=== PATIENT | female | born 1955 | race Caucasian/White ===

== ENCOUNTER 2016-05-20 23:30 | Emergency (ER) | payer BC ==
[2016-05-21] MEDS ORDERED: methylPREDNISolone SOD SUCC* 125 MG 2 ML VIAL IV ONE (01:31)
[2016-05-21] MEDS ORDERED: diPHENhydraMINE IV* 50 MG/ML 1 ml VIAL (BENADRYL) IV ONE (01:31)
--- NOTE | 2016-05-21 02:03 | ED ---
Wenceslao Valderrama Salem, scribed for Jason Zavala MD on 05/21/16 at 0137 . Allergic Reaction/Systemic - HPI Summary HPI Summary: Patient is 60 y/o female who presents with hives and lumps across her forehead and neck since less than 12 hours ago. She states she was on a flight back from [place] when sx began. She reports she has environmental allergies, food allergies, and allergies to Penicillins, but that she is very careful. She took 25mg Benadryl at 1930 and 2200. She denies SOB, but reports a postnasal drip feeling in her throat. - History of Current Complaint Chief Complaint: EDAllergicReaction Time Seen by Provider: 05/21/16 01:23 Hx Obtained From: Patient Onset/Duration: Gradual Onset, Started hours ago Timing: Constant Severity Initially: Moderate Severity Currently: Moderate Pain Intensity: 0 Pain Scale Used: 0-10 Numeric Location: Discrete @ - Forehead and neck. Character: Hives Aggravating Factor(s): Nothing Alleviating Factor(s): Nothing Associated Signs And Symptoms: Positive: Negative - Allergies/Home Medications Allergies/Adverse Reactions: Allergies Allergy/AdvReac Type Severity Reaction Status Date / Time Penicillins Allergy Hives Verified 05/21/16 00:06 Shrimp Flavor Allergy Hives Verified 05/21/16 00:06 Sulfa Antibiotics Allergy Fever Verified 05/21/16 00:06 environmental Allergy Eyes Uncoded 05/21/16 00:06 Itchy/Swollen/Red/Watery PMH/Surg Hx/FS Hx/Imm Hx Previously Healthy: Yes Cardiovascular History: Denies: Hx Hypertension - Cancer History Hx Chemotherapy: No Hx Radiation Therapy: No Infectious Disease History: No Infectious Disease History: Reports: Traveled Outside the [place] in Last 30 Days - [place] - Family History Known Family History: Positive: Hypertension - Social History Occupation: Unemployed Lives: With Family - . Review of Systems Positive: Other - Hives and lumps on her forehead and neck. . Negative: Fever Positive: Other - A postnasal drip feeling in her throat. Negative: Shortness Of Breath All Other Systems Reviewed And Are Negative: Yes Physical Exam Triage Information Reviewed: Yes Vital Signs On Initial Exam: Initial Vitals Temp Pulse Resp BP Pulse Ox 98.8 F 69 18 136/65 98 05/21/16 00:03 05/21/16 00:03 05/21/16 00:03 05/21/16 00:03 05/21/16 00:03 Vital Signs Reviewed: Yes Appearance: Positive: Well-Appearing, No Pain Distress Skin: Positive: Warm, Other - patchy erythematous rash on face Head/Face: Positive: Other - mild perioral edema Eyes: Positive: SASHA ENT: Positive: Hearing grossly normal Neck: Positive: Supple Respiratory/Lung Sounds: Positive: Clear to Auscultation, Breath Sounds Present Cardiovascular: Positive: RRR Abdomen Description: Positive: Nontender, Soft Bowel Sounds: Positive: Present Musculoskeletal: Positive: Strength/ROM Intact Neurological: Positive: Sensory/Motor Intact, Alert, Oriented to Person Place, Time Psychiatric: Positive: Affect/Mood Appropriate Diagnostics - Vital Signs Vital Signs Temp Pulse Resp BP Pulse Ox 05/21/16 00:03 98.8 F 69 18 136/65 98 - Laboratory Lab Statement: Any lab studies that have been ordered have been reviewed, and results considered in the medical decision making process. Re-Evaluation - Re-Evaluation First Eval Change: Improved Allergic Reaction Course/Dx - Course Course Of Treatment: 60 y/o female presents with hives and lumps on her forehead and neck since less than 12 hours ago. She denies SOB. She received Diphenhydramine and Methylprednisolone in the ED. Pt is improved and will be DC' d. - Diagnoses Provider Diagnoses: Acute allergic reaction Discharge - Discharge Plan Condition: Improved Disposition: HOME Prescriptions: predniSONE TAB* [Deltasone TAB*] 40 mg PO DAILY #8 tab Patient Education Materials: General Allergic Reaction (ED) Referrals: Evelyne Badillo MD [Primary Care Provider] - Additional Instructions: Follow up with PCP. The documentation as recorded by the Wenceslao hu Salem accurately reflects the service I personally performed and the decisions made by , Jason Zavala MD.
[2016-05-21 02:17] VITALS: BP 138/64
== END 2016-05-21 02:54 | disposition home or self-care (01) ==
LOC: ED 23:30
DX: T78.40XA Allergy, unspecified, initial encounter (principal); L50.9 Urticaria, unspecified; X58.XXXA Exposure to other specified factors, initial encounter
CPT/HCPCS: 96374; 96375; 99282; J1200; J2930

== ENCOUNTER 2017-01-20 21:49 | Emergency (ER) | payer BC ==
[2017-01-20] MEDS ORDERED: Metoprolol Tartrate IV* 1 MG/ML 5 ML VIAL IV ONE (22:31)
[2017-01-20 22:46] LABS: Hematocrit 35 % (35-47); Hemoglobin 11.8 g/dl (12.0-16.0); Mean Corpuscular HGB Conc 34 g/dl (31-36); Mean Corpuscular Hemoglobin 29 pg (27-31); Mean Corpuscular Volume 86 fL (80-97); Mean Platelet Volume 8 um3 (7.4-10.4); Red Blood Count 4.06 10^6/ul (4.0-5.4); Red Cell Distribution Width 12 % (10.5-15); White Blood Count 8.1 10^3/ul (3.5-10.8)
[2017-01-20 23:00] LABS: Anion Gap 6 mmol/L (2-11); BUN/Creatinine Ratio 26.2 (8-20); Blood Urea Nitrogen 22 mg/dL (6-24); CO2 Carbon Dioxide 28 mmol/L (22-32); Chloride 104 mmol/L (101-111); EGFR African American 88.6 (>60); EGFR Non-African American 68.9 (>60); Glucose 158 mg/dL (70-100); Potassium 3.7 mmol/L (3.5-5.0); Sodium 138 mmol/L (133-145)
[2017-01-20 23:01] LABS: ALT 27 U/L (7-52); AST 17 U/L (13-39); Albumin 3.6 g/dL (3.2-5.2); Alkaline Phosphatase 106 U/L (34-104); Calcium 9.2 mg/dL (8.6-10.3); Globulin 2.6 g/dL (2-4); Total Protein 6.2 g/dL (6.4-8.9)
[2017-01-20 23:26] LABS: T4 14.35 mcg/mL (6.09-12.23)
[2017-01-20 23:32] LABS: Free T4 3.32 ng/dL (0.61-1.12)
[2017-01-20 23:41] LABS: TSH (Thyroid Stimulating Horm) < 0.01 mcIU/mL (0.34-5.60)
--- NOTE | 2017-01-21 00:18 | ED ---
Sean Valderrama Benjamin, scribed for Jesus Hull MD on 01/20/17 at 2218 . Palpitations / Dysrhythmia - HPI Summary HPI Summary: 61yo female who was recently dxed with Graves Dz (hyperthyroidism) presents today c/o palpitations tonight after taking propranolol at 1815 hour. Pt recently changed her propranolol dose from 180mg extended release daily to 100mg BID. - History of Current Complaint Chief Complaint: EDDysrhythmPalp Time Seen by Provider: 01/20/17 22:00 Hx Obtained From: Patient, Family/Dental Assistant Teacher - Onset/Duration: Sudden Onset, Lasting Hours, Still Present Severity Initially: Mild Severity Currently: Mild Character: Fast Aggravating: Medication - propranolol Alleviating: Nothing Associated Signs & Symptoms: Negative - Allergy/Home Medications Allergies/Adverse Reactions: Allergies Allergy/AdvReac Type Severity Reaction Status Date / Time Penicillins Allergy Hives Verified 05/21/16 00:06 Shrimp Flavor Allergy Hives Verified 05/21/16 00:06 Sulfa Antibiotics Allergy Fever Verified 05/21/16 00:06 environmental Allergy Eyes Uncoded 05/21/16 00:06 Itchy/Swollen/Red/Watery PMH/Surg Hx/FS Hx/Imm Hx Endocrine/Hematology History: Reports: Hx Thyroid Disease - hyper. Graves Cardiovascular History: Denies: Hx Hypertension - Cancer History Hx Chemotherapy: No Hx Radiation Therapy: No Infectious Disease History: No Infectious Disease History: Denies: Traveled Outside the [place] in Last 30 Days - Family History Known Family History: Positive: Hypertension - Social History Lives: With Family Alcohol Use: Weekly Substance Use Type: Reports: None Smoking Status (MU): Former Smoker Review of Systems Constitutional: Negative Eyes: Negative ENT: Negative Positive: Palpitations. Negative: Chest Pain Respiratory: Negative Negative: Shortness Of Breath Gastrointestinal: Negative Genitourinary: Negative Musculoskeletal: Negative Skin: Negative Neurological: Negative Positive: Anxious All Other Systems Reviewed And Are Negative: Yes Physical Exam - Summary Physical Exam Summary: VITAL SIGNS: Reviewed. GENERAL: ~Patient is a well-developed and nourished FEMALE who is lying comfortable in the stretcher. Patient is not in any acute respiratory distress. HEAD AND FACE: No signs of trauma. No ecchymosis, hematomas or skull depressions. No sinus tenderness. EYES: PERRLA, EOMI x 2, No injected conjunctiva, no nystagmus. EARS: Hearing grossly intact. Ear canals and tympanic membranes are within normal limits. MOUTH: Oropharynx within normal limits. NECK: Supple, trachea is midline, no adenopathy, no JVD, no carotid bruit, no c- spine tenderness, neck with full ROM. CHEST: Symmetric, no tenderness at palpation LUNGS: Clear to auscultation bilaterally. No wheezing or crackles. CVS: Regular rate and rhythm, S1 and S2 present, no murmurs or gallops appreciated. ABDOMEN: Soft, non-tender. No signs of distention. No rebound no guarding, and no masses palpated. Bowel sounds are normal. EXTREMITIES: FROM in all major joints, no edema, no cyanosis or clubbing. NEURO: Alert and oriented x 3. No acute neurological deficits. Speech is normal and follows commands. SKIN: Dry and warm PSYCH: Anxious Triage Information Reviewed: Yes Vital Signs On Initial Exam: Initial Vitals Temp Pulse Resp BP Pulse Ox 98.8 F 79 16 152/59 100 01/20/17 21:51 01/20/17 21:51 01/20/17 21:51 01/20/17 21:51 01/20/17 21:51 Vital Signs Reviewed: Yes Diagnostics - Vital Signs Vital Signs Temp Pulse Resp BP Pulse Ox 01/20/17 21:51 98.8 F 79 16 152/59 100 - Laboratory Result Diagrams: 01/20/17 22:40 01/20/17 22:40 Lab Statement: Any lab studies that have been ordered have been reviewed, and results considered in the medical decision making process. - EKG 2202. Cardiac Rate: NL EKG Rhythm: Sinus Rhythm - 83bpm EKG Interpretation: Normal axis. Normal interval. No ischemic changes Re-Evaluation - Re-Evaluation First Eval Re-Evaluation Time: 00:04 Comment: Reviewed pt's lab results. Course/Dx - Course Course Of Treatment: Pt has been in the ED with HR below 100 bpm at all time. Pt has some PVCs. Pt assured that she will f/u with an [employer] Grade Social Studies Teacher tomorrow. - Diagnoses Provider Diagnoses: Hyperthyroidism, Palpitations Discharge - Discharge Plan Condition: Stable Disposition: HOME Patient Education Materials: Palpitations (ED), Hyperthyroidism (ED) Referrals: Evelyne Badillo MD [Primary Care Provider] - Additional Instructions: RETURN TO EMERGENCY DEPARTMENT FOR ANY NEW OR WORSENING SYMPTOMS The documentation as recorded by the Sean hu Benjamin accurately reflects the service I personally performed and the decisions made by me, Jesus Hull MD.
[2017-01-21 00:50] VITALS: BP 122/88
== END 2017-01-21 00:13 | disposition home or self-care (01) ==
LOC: ED 21:49
DX: R00.2 Palpitations (principal); E05.90 Thyrotoxicosis, unspecified without thyrotoxic crisis or storm; Z87.891 Personal history of nicotine dependence
CPT/HCPCS: 36415; 80053; 83735; 84436; 84439; 84443; 85025; 93005; 96374; 99283; J3490